=== PATIENT | male | born 1980 | race Caucasian/White ===

== ENCOUNTER 2016-05-22 17:36 | Emergency (ER) | payer OTHER ==
[~2016-05-22] VITALS: Ht 193 cm; Wt 115.0 kg
[~2016-05-22 17:36] MED LIST: CLIN1CAP5 PO; NAPR500 PO
[2016-05-22 17:42] VITALS: BP 145/92; PULSE 92; RESP 17; TEMP 97.8; O2SAT 98
--- NOTE | 2016-05-22 19:38 | PD ---
HPI Chief Complaint: Skin Problem Time Seen by Provider: 19:27 Travel History International Travel<30 days: No Contact w/Intl Traveler<30days: No Traveled to known affect area: No History of Present Illness HPI 35yo M with no PMH presents to the ED with c/o abscess below right axilla for 1.5 weeks. States it has been getting larger. Had similar abscess [address]. Denies any fever, chest pain, sob, n/v, abdominal pain, weakness or numbness. PFSH Past Surgical History Thoracic Surgery: Yes (STS RIGHT LUNG SURG S/P COLLAPSE) Other Surgery: Yes (facial reconstruction and hernia) Social History Alcohol Use: No Tobacco Use: Yes (1PPD) Substance Use: No Allergies-Medications (Allergen,Severity, Reaction): Coded Allergies: No Known Allergies (Verified , 01/24/16) Reported Meds & Prescriptions Reported Meds & Active Scripts Active Ibuprofen 600 Mg Tab 600 Mg PO Q8HR PRN Review of Systems Except as stated in HPI: all other systems reviewed are Neg Physical Exam Narrative GENERAL: 35yo M not in distress. SKIN: 9cm by 3cm abscess in right midaxillary line T4. HEAD: Atraumatic. Normocephalic. CARDIOVASCULAR: Regular rate and rhythm. No murmur appreciated. RESPIRATORY: No accessory muscle use. Clear to auscultation. Breath sounds equal bilaterally. GASTROINTESTINAL: Abdomen soft, non-tender, nondistended. No rebound tenderness or guarding. MUSCULOSKELETAL: No obvious deformities. No clubbing. No cyanosis. No edema. NEUROLOGICAL: Awake and alert. No obvious cranial nerve deficits. Motor grossly within normal limits. Normal speech. PSYCHIATRIC: Appropriate mood and affect; insight and judgment normal. Data Data Last Documented VS Vital Signs Date Time Temp Pulse Resp B/P Pulse Ox O2 Delivery O2 Flow Rate FiO2 05/22/16 17:42 97.8 92 17 145/92 98 Orders Lidocaine 1% Inj (50 Ml) (Xylocaine 1% I (05/22/16 19:45) Ibuprofen (Motrin) (05/22/16 19:45) Morphine Inj (Morphine Inj) (05/22/16 20:00) MDM Medical Decision Making Medical Screen Exam Complete: Yes Emergency Medical Condition: Yes Differential Diagnosis Abscess vs. hidradenitis suppurativa Narrative Course 35yo M with right axilla abscess. Pt given ibuprofen. I started to give lidocaine but pt is not tolerating it at all. Morphine was initially ordered but ended up not needing it. I&D performed. Return precautions given. Procedures Procedure Narrative INCISION AND DRAINAGE OF ABSCESS: The area was prepped and was sterilely draped. A subcutaneous wheal of 1% Xylocaine with a total number 5 mL was used to anesthetize the area properly. A number 11 scalpel was used to make a 0.5 -cm incision across the area of the abscess. The abscess was drained, complex loculations were broken down, and irrigated with normal saline. Cultures were obtained. Quarter inch iodoform packing was placed in the wound. Sterile dressing applied. Patient advised to have packing removed in two days. Diagnosis Primary Impression: Abscess Patient Instructions: General Instructions Departure Forms: Tests/Procedures Additional Instructions: Please follow up with PMD or ED in 2 days for wound check. Please return to the ED if symptoms worsen. Med/Other Pt SpecificInfo: Prescription(s) given Scripts Ibuprofen 600 Mg [id number] Mg PO Q8HR PRN (PAIN) #20 TAB Ref 0 Prov:Dacia River DO 05/22/16 Disposition: 01 DISCHARGE HOME Condition: Stable Dacia River DO May 22, 2016 19:38 Dacia River DO May 22, 2016 19:38
[2016-05-22] MEDS ORDERED: LIDOCAINE HCL 1% 50 ML VIAL INFIL ONE (19:45)
[2016-05-22] MEDS ORDERED: IBUPROFEN 600 MG TAB PO ONE (19:45)
[2016-05-22] MEDS ORDERED: IBUP-232 PO (19:54)
[2016-05-22] MEDS ORDERED: MORPHINE SULFATE 4 MG/ML INJ IV PUSH ONE (20:00)
== END 2016-05-22 20:33 | disposition home or self-care (01) ==
LOC: PHED 17:36 → PHEFT 20:33
DX: L02.91 Cutaneous abscess, unspecified (principal); F17.210 Nicotine dependence, cigarettes, uncomplicated
CPT/HCPCS: 10061

== ENCOUNTER 2017-04-16 11:02 | Emergency (ER) | payer MEDICAID, OTHER ==
[~2017-04-16] VITALS: Ht 193 cm; Wt 110.0 kg
[~2017-04-16 11:02] MED LIST changes: -CLIN1CAP5 PO; +IBUP-232 PO; -NAPR500 PO
[2017-04-16] MEDS ORDERED: IOHEXOL 350 MG/ML 10 ML VIAL (for RAD DIAG) IVCONTRAST ONE (11:03)
[2017-04-16 11:04] VITALS: BP 141/95; PULSE 91; RESP 18; TEMP 98.5; O2SAT 97
[2017-04-16] MEDS ORDERED: TUMS500C CHEW (11:21)
[2017-04-16] MEDS ORDERED: PRIL20TA2 OROPHARYNG (11:21)
[2017-04-16] MEDS ORDERED: SODIUM CHLOR 0.9% 1000 ML INJ 1,000 ML IV SCH (11:43)
[2017-04-16] MEDS ORDERED: SODIUM CHLORIDE 0.9% FLUSH 10 ML FLUSH IV FLUSH PRN (11:45)
[2017-04-16] MEDS ORDERED: ONDANSETRON HCL 4 MG/2 ML VIAL IVP ONE (11:45)
--- NOTE | 2017-04-16 12:23 | PD ---
HPI Chief Complaint: GI Complaint Time Seen by Provider: 11:22 Travel History International Travel<30 days: No Contact w/Intl Traveler<30days: No Traveled to known affect area: No History of Present Illness HPI 36-year-old male patient presents emergency department for evaluation of nausea and vomiting since 2 AM this morning. Patient states the vomit appeared to be bright red in color. He also has right-sided epigastric pain. He states the pain is achy in nature and mild in intensity. He denies any diarrhea. He states his only major medical history is hypertension. He does not take any daily medication. He smokes half pack cigarettes a day. He occasionally drinks alcohol. PFSH Past Medical History Diabetes: No Diminished Hearing: No GERD: Yes Hypertension: Yes Tetanus Vaccination: > 5 Years Influenza Vaccination: No Past Surgical History Thoracic Surgery: Yes (STS RIGHT LUNG SURG S/P COLLAPSE) Other Surgery: Yes (facial reconstruction and hernia) Social History Alcohol Use: Yes Tobacco Use: Yes (1PPD) Substance Use: No Allergies-Medications (Allergen,Severity, Reaction): Coded Allergies: No Known Allergies (Verified Adverse Reaction, Unknown, 04/16/17) Reported Meds & Prescriptions Reported Meds & Active Scripts Active Zofran Odt (Ondansetron Odt) 4 Mg Tab 4 Mg SL Q6HR PRN Reported Tums (Calcium Carbonate (Antacid)) 500 Mg Chew 500 Mg CHEW PRN Prilosec (Omeprazole Magnesium) 20 Mg Tab 20 Mg OROPHARYNG DAILY Review of Systems Except as stated in HPI: all other systems reviewed are Neg Physical Exam Narrative GENERAL: Well-nourished, well-developed 36-year-old male patient in no acute distress. Nontoxic appearing. SKIN: Focused skin assessment warm/dry. HEAD: Normocephalic. Atraumatic. EYES: No scleral icterus. No injection or drainage. NECK: Supple, trachea midline. No JVD or lymphadenopathy. CARDIOVASCULAR: Regular rate and rhythm without murmurs, gallops, or rubs. RESPIRATORY: Breath sounds equal bilaterally. No accessory muscle use. GASTROINTESTINAL: Abdomen soft, non-tender, nondistended. MUSCULOSKELETAL: No cyanosis, or edema. BACK: Nontender without obvious deformity. No CVA tenderness. Data Data Last Documented VS Vital Signs Date Time Temp Pulse Resp B/P (MAP) Pulse Ox O2 Delivery O2 Flow Rate FiO2 04/16/17 13:00 86 15 98 Room Air 04/16/17 11:04 98.5 Orders Orders Complete Blood Count With Diff (04/16/17 11:43) Comprehensive Metabolic Panel (04/16/17 11:43) Lipase (04/16/17 11:43) Prothrombin Time / Inr (Pt) (04/16/17 11:43) Act Partial Throm Time (Ptt) (04/16/17 11:43) Urinalysis - C+S If Indicated (04/16/17 11:43) Ct Abd/Pel W Iv Contrast(Rout) (04/16/17 11:43) Iv Access Insert/Monitor (04/16/17 11:43) Ecg Monitoring (04/16/17 11:43) Oximetry (04/16/17 11:43) Ondansetron Inj (Zofran Inj) (04/16/17 11:45) Sodium Chlor 0.9% 1000 Ml Inj (Ns 1000 M (04/16/17 11:43) Sodium Chloride 0.9% Flush (Ns Flush) (04/16/17 11:45) Electrocardiogram (04/16/17 11:43) Iohexol 350 Inj (Omnipaque 350 Inj) (04/16/17 11:03) Ed Discharge Order (04/16/17 14:39) Labs Laboratory Tests Test 04/16/17 11:40 04/16/17 13:00 White Blood Count 10.0 TH/MM3 Red Blood Count 4.76 MIL/MM3 Hemoglobin 15.0 GM/DL Hematocrit 44.3 % Mean Corpuscular Volume 93.1 FL Mean Corpuscular Hemoglobin 31.6 PG Mean Corpuscular Hemoglobin Concent 33.9 % Red Cell Distribution Width 12.9 % Platelet Count 316 TH/MM3 Mean Platelet Volume 8.0 FL Neutrophils (%) (Auto) 63.9 % Lymphocytes (%) (Auto) 26.6 % Monocytes (%) (Auto) 7.5 % Eosinophils (%) (Auto) 1.1 % Basophils (%) (Auto) 0.9 % Neutrophils # (Auto) 6.4 TH/MM3 Lymphocytes # (Auto) 2.7 TH/MM3 Monocytes # (Auto) 0.8 TH/MM3 Eosinophils # (Auto) 0.1 TH/MM3 Basophils # (Auto) 0.1 TH/MM3 CBC Comment DIFF FINAL Differential Comment Prothrombin Time 10.3 SEC Prothromb Time International Ratio 1.0 RATIO Activated Partial Thromboplast Time 26.4 SEC Blood Urea Nitrogen 11 MG/DL Creatinine 0.91 MG/DL Random Glucose 92 MG/DL Total Protein 8.2 GM/DL Albumin 3.8 GM/DL Calcium Level 8.9 MG/DL Alkaline Phosphatase 97 U/L Aspartate Amino Transf (AST/SGOT) 26 U/L Alanine Aminotransferase (ALT/SGPT) 43 U/L Total Bilirubin 0.5 MG/DL Sodium Level 141 MEQ/L Potassium Level 3.9 MEQ/L Chloride Level 109 MEQ/L Carbon Dioxide Level 27.1 MEQ/L Anion Gap 5 MEQ/L Estimat Glomerular Filtration Rate 93 ML/MIN Lipase 278 U/L Urine Color YELLOW Urine Turbidity CLEAR Urine pH 5.0 Urine Specific Wideman 1.017 Urine Protein TRACE mg/dL Urine Glucose (UA) NEG mg/dL Urine Ketones NEG mg/dL Urine Occult Blood NEG Urine Nitrite NEG Urine Bilirubin NEG Urine Urobilinogen LESS THAN 2.0 MG/DL Urine Leukocyte Esterase NEG Urine WBC 1 /hpf Urine Squamous Epithelial Cells <1 /hpf Urine Hyaline Casts 3 /lpf Urine Mucus FEW /lpf Microscopic Urinalysis Comment CULT NOT INDICATED MDM Medical Decision Making Medical Screen Exam Complete: Yes Emergency Medical Condition: Yes Differential Diagnosis Differential diagnoses include but not limited to peptic ulcer disease, cholecystitis, pancreatitis, gastroenteritis Narrative Course Patient is on monitor, IV obtained, blood works in the lab, CBC, CMP, lipase, PT INR, UA ordered and pending. Abdominal CT ordered and pending. 1 L normal saline bolus given 4 mg IV Zofran given. EKG ordered and pending. CBC shows no acute abnormal abnormality CMP shows no acute abnormality PT/INR shows no acute abnormality UA shows no acute abnormality. EKG shows sinus rhythm. Based on patient's symptoms, clinical presentation, lab results, radiological results, vital sign review and physical exam it is not necessary to admit the patient to the hospital or keep the patient in the emergency department for further evaluation. Patient will be discharged home with a prescription for Zofran and instructions to return the emergency Department with any worsening condition. Patient reports that he feels better and is thankful for care. Diagnosis Primary Impression: Gastroenteritis Referrals: Primary Care Physician Patient Instructions: Gastroenteritis (ED), General Instructions Additional Instructions: Please return to emergency department if your symptoms return or worsen. Follow up with your primary care provider. Take Zofran as directed as needed for nausea and vomiting. Stay hydrated, get enough rest, diet as tolerated. Med/Other Pt SpecificInfo: Prescription(s) given Scripts Ondansetron Odt (Zofran Odt) 4 Mg Tab 4 MG SL Q6HR Y for Nausea/Vomiting, #15 TAB 0 Refills Prov: Lesa Siegel 04/16/17 Disposition: 01 DISCHARGE HOME Condition: Stable Lesa Siegel Apr 16, 2017 12:23
[2017-04-16 12:28] LABS: AUTOMATED NEUTROPHIL # 6.4 TH/MM3 (1.8-7.7); BASOPHIL # 0.1 TH/MM3 (0-0.2); BASOPHIL % 0.9 % (0.0-2.0); EOSINOPHIL # 0.1 TH/MM3 (0-0.4); EOSINOPHIL % 1.1 % (0.0-4.0); HEMATOCRIT 44.3 % (39.0-51.0); LYMPH % 26.6 % (9.0-44.0); LYMPHOCYTE # 2.7 TH/MM3 (1.0-4.8); MEAN CELL VOLUME 93.1 FL (80.0-100.0); MEAN CORPUSCULAR HEMOGLOBIN 31.6 PG (27.0-34.0); MEAN CORPUSCULAR HGB CONC 33.9 % (32.0-36.0); MONO % 7.5 % (0.0-8.0); MONOCYTE # 0.8 TH/MM3 (0-0.9); NEUT % 63.9 % (16.0-70.0); PLATELET COUNT 316 TH/MM3 (150-450); RED BLOOD COUNT 4.76 MIL/MM3 (4.50-5.90); RED CELL DISTRIBUTION WIDTH 12.9 % (11.6-17.2)
[2017-04-16 12:37] LABS: PROTHROMBIN TIME - PATIENT 10.3 SEC (9.8-11.6)
[2017-04-16 12:45] LABS: ALBUMIN 3.8 GM/DL (3.4-5.0); ALT (GPT) 43 U/L (12-78); AST (GOT) 26 U/L (15-37); BICARBONATE 27.1 MEQ/L (21.0-32.0); BLOOD UREA NITROGEN 11 MG/DL (7-18); CALCIUM 8.9 MG/DL (8.5-10.1); CHLORIDE 109 MEQ/L (98-107); CREATININE 0.91 MG/DL (0.60-1.30); GLOMERULAR FILTRATION RATE 93 ML/MIN (>89); GLUCOSE,RANDOM 92 MG/DL (74-106); LIPASE 278 U/L (73-393); SODIUM (NA) 141 MEQ/L (136-145)
[2017-04-16 12:47] LABS: ALKALINE PHOSPHATASE 97 U/L (45-117); TOTAL BILIRUBIN ADULT 0.5 MG/DL (0.2-1.0); TOTAL PROTEIN 8.2 GM/DL (6.4-8.2)
[2017-04-16 13:00] VITALS: BP 130/76; PULSE 86; RESP 15; O2SAT 98
[2017-04-16 13:32] LABS: BILIRUBIN, URINE NEG (NEG); BLOOD, URINE NEG (NEG); GLUCOSE,URINE NEG (NEG); HYALINE CAST, URINE 3 /lpf (RARE); KETONE, URINE NEG (NEG); MUCUS URINE FEW /lpf (OCC); NITRITE,URINE NEG (NEG); SQUAMOUS EPITHELIAL CELL URINE <1 /hpf (0-5); URINE COLOR YELLOW (YELLW/STRAW); URINE LEUKOCYTE ESTERASE NEG (NEG)
--- NOTE | 2017-04-16 14:11 | RADRPT ---
EXAM DATE/TIME: 04/16/2017 13:48 [facility] COMPARISON: No previous studies available for comparison. INDICATIONS : Diffuse upper abdomen pain for three days. IV CONTRAST: 97 cc Omnipaque 350 (iohexol) IV ORAL CONTRAST: No oral contrast ingested. RADIATION DOSE: 10.24 CTDIvol (mGy) MEDICAL HISTORY : None SURGICAL HISTORY : None. ENCOUNTER: Initial ACUITY: 3 days PAIN SCALE: 5/10 LOCATION: Bilateral upper quadrant TECHNIQUE: Volumetric scanning of the abdomen and pelvis was performed. Using automated exposure control and ad justment of the mA and/or kV according to patient size, radiation dose was kept as low as reasonably achievable to obtain optimal diagnostic quality images. DICOM format image data is available electro nically for review and comparison. FINDINGS: LOWER LUNGS: The visualized lower lungs are clear. LIVER: Homogeneously lower density without lesion. There is no dilation of the biliary tree. No calcified gallstones. SPLEEN: Normal size without lesion. PANCREAS: Within normal limits. KIDNEYS: Normal in size and shape. There is no mass, stone or hydronephrosis. ADRENAL GLANDS: Within normal limits. VASCULAR: There is no aortic aneurysm. BOWEL/MESENTERY: The stomach, small bowel, and colon demonstrate no acute abnormality. There is no free intraperitone al air or fluid. ABDOMINAL WALL: Within normal limits. RETROPERITONEUM: There is no lymphadenopathy. BLADDER: No wall thickening or mass. REPRODUCTIVE: Within normal limits. INGUINAL: There is no lymphadenopathy or hernia. MUSCULOSKELETAL: Within normal limits for patient age. CONCLUSION: Normal examination except for mildly fatty liver. Constantin Pelayo MD on April 16, 2017 at 14:08 Board Certified Radiologist. This report was verified electronically.
[2017-04-16] MEDS ORDERED: ZOFR4TAB3 SL (14:38)
--- NOTE | 2017-04-17 23:28 | EKG ---
Date Performed: 04/16/2017 Time Performed: 13:04:04 PTAGE: 36 years EKG: Sinus rhythm NORMAL ECG NO PREVIOUS TRACING DOCTOR: Jared Jewell Interpretating Date/Time 04/17/2017 23:27:19
== END 2017-04-16 14:58 | disposition home or self-care (01) ==
LOC: NEPC 11:02
DX: K52.9 Noninfective gastroenteritis and colitis, unspecified (principal); I10 Essential (primary) hypertension; F17.210 Nicotine dependence, cigarettes, uncomplicated; K21.9 Gastro-esophageal reflux disease without esophagitis; Z72.89 Other problems related to lifestyle
CPT/HCPCS: 74177; 80053; 81001; 83690; 85025; 85610; 85730; 93005; 96374; 99285; J2405; J7030; Q9967